=== PATIENT | female | born 1965 | race Caucasian/White ===

== ENCOUNTER 2017-11-26 16:29 | Emergency (ER) | payer OTHER ==
[~2017-11-26] VITALS: Ht 154.9 cm; Wt 104.5 kg
[~2017-11-26 16:29] MED LIST: ALLERGY SHOTS SQ; ATEN-173 PO; MULT-506 PO; VYT1010 PO; [UNRECOGNIZED DRUG - OTHER] PO
[2017-11-26 16:34] VITALS: TEMP 36.7; Ht 154.9 cm; Wt 104.5 kg
[2017-11-26] MEDS ORDERED: MECLIZINE HCL 25 MG TAB PO STA (16:51)
[2017-11-26] MEDS ORDERED: SODIUM CHLORIDE 0.9% 1000ML 1,000 ML IV STA (16:51)
[2017-11-26] MEDS ORDERED: ONDANSETRON INJ 2 MG/ML 2 ML VIAL IV STA (16:51)
--- NOTE | 2017-11-26 16:57 | EMERGENCY ROOM VISIT NOTE ---
History Report prepared by Gabino: Timmy Prabhakar Under the Supervision of: Dr. Taj Infante M.D. First contact with patient: 16:40 Chief Complaint: DIZZY Stated Complaint: CLOTS IN LEGS, DIZZY,LIGHTHEADED History of Present Illness The patient is a 52 year old female who presents to the Emergency Room with complaints of constant lumps in the back of her right leg beginning a few days ago. The patient states he had a sore on the back of her leg that healed. She reports she also developed lumps behind her leg that are sore when she sits down. The patient notes she has a history of blood clots after her fourth child and was placed on a heparin drip. She notes she has been sleeping with the heating pad on her right leg, and it is not helping. She states she also developed constant dizziness and lightheadedness today. The patient reports she was evaluated at [facility] because she did not know if it was related to her blood clots. She notes she had an elevated blood pressure at [facility] today and was advised to come to the ED. The patient states she went to work instead. She reports lying down does not help her symptoms, and moving her head worsens them. The patient notes she was sent home from work. She states she takes atenolol. The patient denies trouble eating, missing medications, eating salty foods, and changing her diet. Source of History: patient Onset: a few days ago Position: leg (back, right) Quality: other (lumps) Timing: constant Note: Associated symptoms: dizziness and lightheadedness Denies: trouble eating, missing medications, eating salty foods, and changing her diet Review of Systems See HPI for pertinent positives & negatives. A total of 10 systems reviewed and were otherwise negative. Past Medical & Surgical Medical Problems: (1) Heart disease (2) History of blood clots (3) HTN (hypertension) (4) Stomach problems Family History Diabetes mellitus Heart disease Lung disease Social History Smoking Status: Never Smoker Smokeless Tobacco Use: No Alcohol Use: none Marital Status: Housing Status: lives with family Occupation Status: employed Current/Historical Medications Scheduled Acetaminophen (Tylenol), 1,000 MG PO DIRECTED Flaxseed (Linseed) (Flax Seed Oil), 1 CAP PO DAILY Gabapentin (Neurontin), 800 MG PO 5XD Ibuprofen (Advil), 400-600 MG PO DIRECTED Lorazepam (Ativan), Unknown Dose PO HS Meloxicam (Mobic), 15 MG PO DAILY Pyridoxine (Vitamin B6), 1 TAB PO DAILY Scheduled PRN Meclizine Hcl (Meclizine Hcl), 1 TAB PO TID PRN for Dizziness or Vertigo Tizanidine (Zanaflex ), 4 MG PO BID PRN for Pain Allergies Coded Allergies: Morphine (Verified Allergy, Severe, HIVES AND SEVERE ITCHING, 09/10/09) POST OP TODAY Latex1 -Allergic Contact Dermititis (Verified Allergy, Unknown, 12/07/06) Prednisone (Verified Allergy, Unknown, 09/10/09) Physical Exam Vital Signs Date Time Temp Pulse Resp B/P (MAP) Pulse Ox O2 Delivery O2 Flow Rate FiO2 11/26/17 20:49 78 20 140/96 98 11/26/17 19:55 80 12 144/84 98 Room Air 11/26/17 18:29 81 11/26/17 18:28 81 20 97 Room Air 11/26/17 17:06 94 Room Air 11/26/17 17:06 94 Room Air 11/26/17 16:34 36.7 92 20 127/88 94 Room Air Physical Exam GENERAL: Awake, alert, well-appearing, in no acute distress HENT: Normocephalic, atraumatic. Oropharynx unremarkable. EYES: Normal conjunctiva. Sclera non-icteric. NECK: Supple. No nuchal rigidity. FROM. No JVD. RESPIRATORY: Clear to auscultation. CARDIAC: Regular rate, normal rhythm. Extremities warm and well perfused. Pulses equal. ABDOMEN: Soft, non-distended. No tenderness to palpation. No rebound or guarding. No masses. RECTAL: Deferred. MUSCULOSKELETAL: Chest examination reveals no tenderness. The back is symmetrical on inspection without obvious abnormality. There is no CVA tenderness to palpation. No joint edema. LOWER EXTREMITIES: Calves are equal size bilaterally and non-tender. No edema. Contusion to the right hip area that is tender upon palpation. This is the location of where the heating pad was and measures about 2in x 2in. NEURO: Normal sensorium. No sensory or motor deficits noted. SKIN: No rash or jaundice noted. Medical Decision & Procedures ER Provider Diagnostic Interpretation: Radiology results as stated below per my review and radiologist interpretation: RIGHT LOWER EXTREMITY VENOUS DOPPLER HISTORY: Pt c/o Rt sided leg pain COMPARISON STUDY: None. FINDINGS: There is normal compressibility, flow, and augmentation within the right lower extremity deep venous system. Thrombosed superficial varicosity within the upper to mid lateral thigh. IMPRESSION: No DVT within the right lower extremity. Thrombosed superficial varicosity within the upper to mid lateral thigh. Electronically signed by: Marco A Chi M.D. 11/26/2017 7:45 PM Dictated Date/Time: 11/26/2017 7:44 PM HEAD WITHOUT CONTRAST (CT) CT DOSE: 655.73 mGy.cm HISTORY: Mental status change Pt c/o dizziness TECHNIQUE: Multiaxial CT images of the head were performed without the use of intravenous contrast. A dose lowering technique was utilized adhering to the principles of ALARA. Comparison: None. Findings: The paranasal sinuses and mastoid air cells are clear. The calvarium and skull base are intact. The ventricles and sulci are within normal limits. There is no mass, hematoma, midline shift, or acute infarct. Impression: No acute intracranial abnormality. The above report was generated using voice recognition software. It may contain grammatical, syntax or spelling errors. Electronically signed by: Isidro Rico M.D. 11/26/2017 6:02 PM Dictated Date/Time: 11/26/2017 6:01 PM CHEST ONE VIEW PORTABLE HISTORY: severe hypertension COMPARISON: Chest 12/28/2006. FINDINGS: No pleural effusions. No pneumothorax. The heart remains mildly enlarged. This remains unchanged. No new focal lung consolidations to suggest pneumonia. No evidence for pulmonary edema. There is a new 11 mm nodule within the right lung base. This appears to demonstrate central lucency. IMPRESSION: 1. No acute process within the chest. 2. Stable mild cardiomegaly. 3. A new 11 mm nodular density within the right lung base which appears to demonstrate central lucency. This could be due to overlying artifact. Follow-up nonemergent PA and lateral views of the chest with oblique views is recommended to exclude a pulmonary nodule. Electronically signed by: Marco A Chi M.D. 11/26/2017 5:16 PM Dictated Date/Time: 11/26/2017 5:14 PM CHEST-PA,LAT AND OBLIQUE VIEWS HISTORY: Abnormal chest x-ray. Follow-up. Pt c/o dizziness COMPARISON: Chest 11/26/2017. FINDINGS: The nodular density overlying the right lung base is consistent with an 11 mm calcification within the right upper breast. Therefore, the lungs are clear. The heart remains mildly enlarged. No pleural effusions. No pneumothorax. IMPRESSION: 1. No acute process within the chest. 2. Nodular density on the prior study corresponds to an 11 mm calcification within the right upper breast. Electronically signed by: Marco A Chi M.D. 11/26/2017 8:19 PM Dictated Date/Time: 11/26/2017 8:18 PM Laboratory Results 11/26/17 17:00 Red Blood Count 4.49, Mean Corpuscular Volume 88.9, Mean Corpuscular Hemoglobin 29.8, Mean Corpuscular Hemoglobin Concent 33.6, Mean Platelet Volume 10.0, Neutrophils (%) (Auto) 62.3, Lymphocytes (%) (Auto) 27.2, Monocytes (%) (Auto) 7.1, Eosinophils (%) (Auto) 2.7, Basophils (%) (Auto) 0.4, Neutrophils # (Auto) 4.93, Lymphocytes # (Auto) 2.15, Monocytes # (Auto) 0.56, Eosinophils # (Auto) 0.21, Basophils # (Auto) 0.03 11/26/17 17:00 Test 11/26/17 17:00 11/26/17 18:20 White Blood Count 7.90 K/uL (4.8-10.8) Red Blood Count 4.49 M/uL (4.2-5.4) Hemoglobin 13.4 g/dL (12.0-16.0) Hematocrit 39.9 % (37-47) Mean Corpuscular Volume 88.9 fL (80-100) Mean Corpuscular Hemoglobin 29.8 pg (25-34) Mean Corpuscular Hemoglobin Concent 33.6 g/dl (32-36) Platelet Count 221 K/uL (130-400) Mean Platelet Volume 10.0 fL (7.4-10.4) Neutrophils (%) (Auto) 62.3 % Lymphocytes (%) (Auto) 27.2 % Monocytes (%) (Auto) 7.1 % Eosinophils (%) (Auto) 2.7 % Basophils (%) (Auto) 0.4 % Neutrophils # (Auto) 4.93 K/uL (1.4-6.5) Lymphocytes # (Auto) 2.15 K/uL (1.2-3.4) Monocytes # (Auto) 0.56 K/uL (0.11-0.59) Eosinophils # (Auto) 0.21 K/uL (0-0.5) Basophils # (Auto) 0.03 K/uL (0-0.2) RDW Standard Deviation 45.1 fL (36.4-46.3) RDW Coefficient of Variation 13.8 % (11.5-14.5) Immature Granulocyte % (Auto) 0.3 % Immature Granulocyte # (Auto) 0.02 K/uL (0.00-0.02) Prothrombin Time 10.4 SECONDS (9.0-12.0) Prothromb Time International Ratio 1.0 (0.9-1.1) Activated Partial Thromboplast Time 23.8 SECONDS (21.0-31.0) Partial Thromboplastin Ratio 0.9 Anion Gap 6.0 mmol/L (3-11) Est Creatinine Clear Calc Drug Dose 77.9 ml/min Estimated GFR () 80.8 Estimated GFR (Non- 69.8 BUN/Creatinine Ratio 17.5 (10-20) Calcium Level 8.2 mg/dl (8.5-10.1) Total Bilirubin 0.4 mg/dl (0.2-1) Direct Bilirubin < 0.1 mg/dl (0-0.2) Aspartate Amino Transf (AST/SGOT) 21 U/L (15-37) Alanine Aminotransferase (ALT/SGPT) 25 U/L (12-78) Alkaline Phosphatase 129 U/L (45-117) Total Protein 7.3 gm/dl (6.4-8.2) Albumin 3.6 gm/dl (3.4-5.0) Lipase 77 U/L (73-393) Thyroid Stimulating Hormone (TSH) 0.762 uIu/ml (0.300-4.500) Urine Color YELLOW Urine Appearance CLEAR (CLEAR) Urine pH 5.5 (4.5-7.5) Urine Specific [place] 1.018 (1.000-1.030) Urine Protein NEG (NEG) Urine Glucose (UA) NEG (NEG) Urine Ketones NEG (NEG) Urine Occult Blood NEG (NEG) Urine Nitrite NEG (NEG) Urine Bilirubin NEG (NEG) Urine Urobilinogen NEG (NEG) Urine Leukocyte Esterase NEG (NEG) Labs reviewed by ED physician. Medications Administered Medications (Trade) Dose Ordered Sig/Zana Route Start Time Stop Time Status Last Admin Dose Admin Meclizine HCl (Antivert Tab) 25 mg NOW STAT PO 11/26/17 16:51 11/26/17 16:53 DC 11/26/17 17:05 25 MG Sodium Chloride 1,000 ml @ 999 mls/hr Q1H1M STAT IV 11/26/17 16:51 11/26/17 17:51 DC 11/26/17 17:05 999 MLS/HR Ondansetron HCl (Zofran Inj) 4 mg NOW STAT IV 11/26/17 16:51 11/26/17 16:53 DC 11/26/17 17:05 4 MG ECG Per My Interpretation Indication: weakness Rate (beats per minute): 86 Rhythm: normal sinus Findings: other (No ST elevation or depression) ED Course 1643: Past medical records reviewed. The patient was evaluated in room A02. A complete history and physical examination was performed. 1650: Ordered Ondansetron HCl 4mg IV, Sodium Chloride 1000 ml @ 999 mls/hr IV, Meclizine HCl 25mg PO 9: I reevaluated the patient and discussed her current exam findings with her and her family. She is feeling better. 2025: Upon reexamination the patient is resting comfortably. I discussed the 1.1cm cyst of the right breast with the patient. She states she is already aware of this. I referred her to her PCP. . I discussed results and treatment plan with the patient. She verbalizes agreement and understanding. The patient is ready for discharge. Medical Decision Etiologies such as metabolic, infection, hypo/hyperglycemia, electrolyte abnormalities, cardiac sources, intracerebral event, toxicologic, neurologic, as well as others were entertained. This is a 52-year-old female who presents the emergency department with a number of complaints. The patient is complaining of dizziness. She gives a vague story of dizziness worsening with movement. She has a normal CAT scan of the head and the dizziness was improved with meclizine. I suspect that this is benign positional vertigo. I will note that the patient does not have an elevation in her white blood cell count has a normal renal profile. In addition the patient is also complaining of lumps in her right leg. She does have a superficial thrombophlebitis confirmed on ultrasound of the leg. Based on this I stressed the treatment was ibuprofen along with warm compresses. I also stressed the need for a repeat ultrasound in 1 week if the leg is continuing to swell or she has additional pain. She can follow-up with this with her primary care physician. Patient has no other complaints. Medication Reconcilliation Current Medication List: was personally reviewed by me Blood Pressure Screening Patient's blood pressure: Elevated blood pressure Blood pressure disposition: Referred to PCP Impression Primary Impression: Vertigo Additional Impression: Phlebitis Scribe Attestation The scribe's documentation has been prepared under my direction and personally reviewed by me in its entirety. I confirm that the note above accurately reflects all work, treatment, procedures, and medical decision making performed by me. Departure Information Dispostion Home / Self-Care Prescriptions Meclizine Hcl (MECLIZINE HCL) 25 Mg Tab 1 TAB PO TID Y for Dizziness or Vertigo for 10 Days, #30 TAB Prov: Taj Infante MD 11/26/17 Referrals Rohan Quiros M.D. Kao, Yi How, M.D. Forms HOME CARE DOCUMENTATION FORM, IMPORTANT VISIT INFORMATION Patient Instructions ED BPV Vertigo, ED Phlebitis Superficial, ED Stockings Venita Nicholas [facility] Additional Instructions Take 600 mg Ibuprofen every 6 hours Apply heat to the area NEED Repeat Ultrasound in one week for continued leg pain and swelling Follow up with DR Grace's office for vertigo You have been examined and treated today on an emergency basis only. This is not a substitute for, or an effort to provide, complete comprehensive medical care. It is impossible to recognize and treat all injuries or illnesses in a single emergency department visit. It is therefore important that you follow up closely with Dr Quiros. Call as soon as possible for an appointment. Thank you for your time and consideration. I look forward to speaking with you again soon. Please don't hesitate to call us if you have any questions. Problem Qualifiers
[2017-11-26] MEDS ORDERED: ZNF4 PO (17:03)
[2017-11-26] MEDS ORDERED: PYRI100T4 PO (17:03)
[2017-11-26] MEDS ORDERED: FLAX1CAP11 PO (17:03)
[2017-11-26] MEDS ORDERED: GABA800T PO (17:03)
[2017-11-26] MEDS ORDERED: IBUP-1050 PO (17:03)
[2017-11-26] MEDS ORDERED: MELO-84 PO (17:03)
[2017-11-26] MEDS ORDERED: ATV/1 PO (17:03)
[2017-11-26] MEDS ORDERED: ACET-1256 PO (17:03)
[2017-11-26 17:06] VITALS: O2SAT 94
--- NOTE | 2017-11-26 17:17 | DIAGNOSTIC IMAGING REPORT ---
CHEST ONE VIEW PORTABLE HISTORY: severe hypertension COMPARISON: Chest 12/28/2006. FINDINGS: No pleural effusions. No pneumothorax. The heart remains mildly enlarged. This remains unchanged. No new focal lung consolidations to suggest pneumonia. No evidence for pulmonary edema. There is a new 11 mm nodule within the right lung base. This appears to demonstrate central lucency. IMPRESSION: 1. No acute process within the chest. 2. Stable mild cardiomegaly. 3. A new 11 mm nodular density within the right lung base which appears to demonstrate central lucency. This could be due to overlying artifact. Follow-up nonemergent PA and lateral views of the chest with oblique views is recommended to exclude a pulmonary nodule. Electronically signed by: Marco A Chi M.D. 11/26/2017 5:16 PM Dictated Date/Time: 11/26/2017 5:14 PM
[2017-11-26 17:29] LABS: BASO % 0.4 %; BASO ABS # 0.03 K/uL (0-0.2); EOS % 2.7 %; EOS ABS # 0.21 K/uL (0-0.5); HEMATOCRIT 39.9 % (37-47); HEMOGLOBIN 13.4 g/dL (12.0-16.0); IG# 0.02 K/uL (0.00-0.02); LYMPH % 27.2 %; LYMPH ABS # 2.15 K/uL (1.2-3.4); MEAN CELL VOLUME 88.9 fL (80-100); MEAN CORPUSCULAR HEMOGLOBIN 29.8 pg (25-34); MEAN CORPUSCULAR HGB CONC 33.6 g/dl (32-36); MONO % 7.1 %; MONO ABS # 0.56 K/uL (0.11-0.59); NEUT % 62.3 %; NEUT ABS # 4.93 K/uL (1.4-6.5); PLATELET COUNT 221 K/uL (130-400); RED CELL DISTRIBUTION WIDTH CV 13.8 % (11.5-14.5); RED CELL DISTRIBUTION WIDTH SD 45.1 fL (36.4-46.3)
[2017-11-26 17:30] LABS: PTT PATIENT 23.8 SECONDS (21.0-31.0)
[2017-11-26 17:47] LABS: ALBUMIN 3.6 gm/dl (3.4-5.0); ALT/SGPT 25 U/L (12-78); AST/SGOT 21 U/L (15-37); BLOOD UREA NITROGEN 16 mg/dl (7-18); CALCIUM 8.2 mg/dl (8.5-10.1); CARBON DIOXIDE 27 mmol/L (21-32); CREATININE 0.94 mg/dl (0.60-1.20); GLUCOSE 113 mg/dl (70-99); LIPASE 77 U/L (73-393); POTASSIUM 3.6 mmol/L (3.5-5.1); SODIUM 140 mmol/L (136-145)
[2017-11-26 17:58] LABS: ALKALINE PHOSPHATASE 129 U/L (45-117); TOTAL PROTEIN 7.3 gm/dl (6.4-8.2)
--- NOTE | 2017-11-26 18:03 | DIAGNOSTIC IMAGING REPORT ---
HEAD WITHOUT CONTRAST (CT) CT DOSE: 655.73 mGy.cm HISTORY: Mental status change Pt c/o dizziness TECHNIQUE: Multiaxial CT images of the head were performed without the use of intravenous contrast. A dose lowering technique was utilized adhering to the principles of ALARA. Comparison: None. Findings: The paranasal sinuses and mastoid air cells are clear. The calvarium and skull base are intact. The ventricles and sulci are within normal limits. There is no mass, hematoma, midline shift, or acute infarct. Impression: No acute intracranial abnormality. The above report was generated using voice recognition software. It may contain grammatical, syntax or spelling errors. Electronically signed by: Isidro Rico M.D. 11/26/2017 6:02 PM Dictated Date/Time: 11/26/2017 6:01 PM
--- NOTE | 2017-11-26 19:46 | DIAGNOSTIC IMAGING REPORT ---
RIGHT LOWER EXTREMITY VENOUS DOPPLER HISTORY: Pt c/o Rt sided leg pain COMPARISON STUDY: None. FINDINGS: There is normal compressibility, flow, and augmentation within the right lower extremity deep venous system. Thrombosed superficial varicosity within the upper to mid lateral thigh. IMPRESSION: No DVT within the right lower extremity. Thrombosed superficial varicosity within the upper to mid lateral thigh. Electronically signed by: Marco A Chi M.D. 11/26/2017 7:45 PM Dictated Date/Time: 11/26/2017 7:44 PM
--- NOTE | 2017-11-26 20:21 | DIAGNOSTIC IMAGING REPORT ---
CHEST-PA,LAT AND OBLIQUE VIEWS HISTORY: Abnormal chest x-ray. Follow-up. Pt c/o dizziness COMPARISON: Chest 11/26/2017. FINDINGS: The nodular density overlying the right lung base is consistent with an 11 mm calcification within the right upper breast. Therefore, the lungs are clear. The heart remains mildly enlarged. No pleural effusions. No pneumothorax. IMPRESSION: 1. No acute process within the chest. 2. Nodular density on the prior study corresponds to an 11 mm calcification within the right upper breast. Electronically signed by: Marco A Chi M.D. 11/26/2017 8:19 PM Dictated Date/Time: 11/26/2017 8:18 PM
[2017-11-26] MEDS ORDERED: MECL1TAB42 PO (20:40)
[2017-11-26 20:49] VITALS: BP 140/96; PULSE 78; O2SAT 98
== END 2017-11-26 21:00 | disposition home or self-care (01) ==
LOC: C.EDB 16:30 → C.EDA 21:00
DX: R42 Dizziness and giddiness (principal); I80.01 Phlebitis and thrombophlebitis of superficial vessels of right lower extremity; Z86.718 Personal history of other venous thrombosis and embolism; I11.9 Hypertensive heart disease without heart failure; Z82.49 Family history of ischemic heart disease and other diseases of the circulatory system; Z79.899 Other long term (current) drug therapy; Z88.5 Allergy status to narcotic agent; Z88.8 Allergy status to other drugs, medicaments and biological substances; Z91.048 Other nonmedicinal substance allergy status